=== PATIENT | male | born 1970 | race Two or more races ===

== ENCOUNTER 2018-02-20 11:43 | Emergency (ER) | payer SELFPAY ==
[2018-02-20] MEDS: diphenhydrAMINE HCL 25 MG CAPSULE PO (12:08)
[2018-02-20] MEDS: FAMOTIDINE 20 MG TABLET. PO (12:08)
[2018-02-20] MEDS: predniSONE 20 MG TABLET PO (12:08)
== END 2018-02-20 12:10 | disposition home or self-care (01) ==
LOC: ER 11:43
DX: L23.7 Allergic contact dermatitis due to plants, except food (principal)
CPT/HCPCS: 99284; J7512; Q0163

== ENCOUNTER 2020-05-11 12:42 | Emergency (ER) | payer SELFPAY ==
[~2020-05-11] VITALS: Ht 172.7 cm; Wt 88.0 kg
[~2020-05-11 12:42] MED LIST: DIPH25CA58 PO; FAMO20TA5 PO; PRED-220 PO
[2020-05-11 13:25] VITALS: BP 170/100
--- NOTE | 2020-05-11 13:55 | PHYS DOC ---
Past Medical History Past Medical History: No Pertinent History Past Surgical History: Other Additional Past Surgical Histo: Left eye surgery Smoking Status: Never Smoker Alcohol Use: Occasionally Drug Use: None General Adult EDM: Chief Complaint: SHOULDER INJURY HPI: HPI: Patient is a 50 year old male who presents with a left shoulder injury. Patient was at work today and fell backwards and landed onto his left shoulder. Patient complains of mild at rest but more moderate to severe pain in the left shoulder with range of motion and palpation. Patient denies any radiation of the pain. Patient denies any other injuries. Pain is a throbbing in nature. Review of Systems: Review of Systems: Constitutional: Denies fever or chills. [] Eyes: Denies change in visual acuity. [] HENT: Denies nasal congestion or sore throat. [] Respiratory: Denies cough or shortness of breath. [] Cardiovascular: Denies chest pain or edema. [] GI: Denies abdominal pain, nausea, vomiting, bloody stools or diarrhea. [] : Denies dysuria. [] Musculoskeletal: Complains of left shoulder pain Integument: Denies rash. [] Neurologic: Denies headache, focal weakness or sensory changes. [] Endocrine: Denies polyuria or polydipsia. [] Lymphatic: Denies swollen glands. [] Psychiatric: Denies depression or anxiety. [] Heart Score: Risk Factors: Risk Factors: DM, Current or recent (<one month) smoker, HTN, HLP, family history of CAD, obesity. Risk Scores: Score 0 - 3: 2.5% MACE over next 6 weeks - Discharge Home Score 4 - 6: 20.3% MACE over next 6 weeks - Admit for Clinical Observation Score 7 - 10: 72.7% MACE over next 6 weeks - Early Invasive Strategies Allergies: Allergies: Allergies Coded Allergies Type Severity Reaction Last Updated Verified No Known Drug Allergies 02/20/18 No Physical Exam: PE: Constitutional: Well developed, well nourished, no acute distress, non-toxic appearance. [] HENT: Normocephalic, atraumatic, bilateral external ears normal, no trismus nose normal. [] Eyes: PERRLA, EOMI, conjunctiva normal, no discharge. [] Neck: Normal range of motion, no tenderness, supple, no stridor. [] Cardiovascular:Heart rate regular rhythm, peripheral pulse intact cap refill is brisk Lungs & Thorax: Bilateral breath sounds clear, no respiratory distress Abdomen: Bowel sounds normal, soft, no tenderness, no masses, no pulsatile masses. [] Skin: Warm, dry, no erythema, no rash. [] Back: No tenderness, no CVA tenderness. [] Extremities: Tenderness to the left shoulder and left distal clavicle, no cyanosis, no clubbing, limited range of motion left shoulder, neurovascular intact distally, Neurologic: Alert and oriented X 3, normal motor function, normal sensory function, no focal deficits noted. [] Psychologic: Affect normal, judgement normal, mood normal. [] Current Patient Data: Vital Signs: Vital Signs Date Time Temp Pulse Resp B/P (MAP) Pulse Ox O2 Delivery O2 Flow Rate FiO2 05/11/20 13:25 98.4 88 20 170/100 (123) 97 Room Air 98.4 EKG: EKG: [] Radiology/Procedures: Radiology/Procedures: [][facility] [address] [place], [place] [id number] IMAGING REPORT Signed PATIENT: ADELFO ANDERS ACCOUNT: [id number] : 1970 LOCATION: ER AGE: 50 SEX: M EXAM STATUS: REG ER ORD. PHYSICIAN: MARIMAR BURCH MD REASON: fall PROCEDURE: SHOULDER 2+V LEFT CLAVICLE LEFT, SHOULDER 2+V LEFT History: Fall Comparison: None. Left clavicle: Findings: 2 views left clavicle are submitted. There is comminuted, overriding, displaced fracture of the distal one third shaft of the left clavicle. There is overriding of the fracture fragments, proximal fragment displaced superiorly to the distal fragment by greater than one shaft width. There are some separate adjacent bone fragments along the inferior margin of the distal fragment. Impression: 1. There is displaced, overriding, comminuted left clavicle fracture. Left shoulder: FINDINGS: 3 views left shoulder are submitted. As described for clavicle radiographs, there is overriding displaced left clavicle fracture. No other fracture is identified. Proximal left humerus articulates normally with the glenoid. IMPRESSION: 1.There is again left clavicle fracture, no other acute fracture identified. Electronically signed by: Victoriano Abdi MD (05/11/2020 2:03 PM) [id number] DICTATED and SIGNED BY: VICTORIANO ABDI MD DATE: 05/11/201402 Course & Med Decision Making: Course & Med Decision Making Pertinent Labs and Imaging studies reviewed. (See chart for details) [] 50-year-old male presents with a shoulder injury. Patient has a significantly displaced clavicular fracture. Patient will be placed in a shoulder immobilizer and will need to follow-up with orthopedist. Patient possibly may need surgery. Dragon Disclaimer: Dragon Disclaimer: This electronic medical record was generated, in whole or in part, using a voice recognition dictation system. Departure Departure Impression: Primary Impression: Closed left clavicular fracture Disposition: 01 DC HOME SELF CARE/HOMELESS Condition: STABLE Referrals: NO PCP (PCP) JOHN SAVAGE MD 2-3 DAYS Patient Instructions: Clavicle Fracture, Shoulder Immobilizer Additional Instructions: EMERGENCY DEPARTMENT GENERAL DISCHARGE INSTRUCTIONS THANK YOU for coming to [facility] Emergency Department (ED) today and trusting us with your care. We trust that you had a positive experience in our Emergency Department. If you wish to speak to the department Management you can contact the supervisor delivery department at . YOUR FOLLOW UP INSTRUCTIONS ARE FOLLOWS: Do you have a private doctor? If you do not have a private doctor, please ask for a resource list of physicians or clinics that may be able to assist you with follow up care. The Emergency Physician has interpreted your x-rays. The X-ray specialist will also review them. If there is a change in the findings you will be notified in 48 hours when at all possible. A lab test or lab culture may have been done, your results will be reviewed and you will be notified if you need a change in treatment. ADDITIONAL INSTRUCTIONS AND INFORMATION Your care today has been supervised by a physician who is specially trained in emergency care. Many problems require more than one evaluation for a complete diagnosis and treatment. We recommend that you schedule your follow up appointment as recommended to ensure complete treatment of your illness or injury. If you are unable to obtain follow up care and continue to have a problem, or if your condition worsens we recommend that you return to the ED. We are not able to safely determine your condition over the phone nor are we able to give sound medical advice over the phone. For these safety reasons, if you call for medical advice we will ask you to come to the ED for further evaluation If you have any questions regarding these discharge instructions please call the ED at . SAFETY INFORMATION In the interest of safety, wellness, and injury prevention; we encourage you to wear your seatbelt, if you smoke; quit smoking, and we encourage your family to use protective helmet for bicycling and other sporting events that present an increased risk for head injury. IF YOUR SYMPTOMS WORSEN OR NEW SYMPTOMS DEVELOP, OR YOU HAVE CONCERNS ABOUT YOUR CONDITION; OR IF YOUR CONDITION WORSENS WHILE YOU ARE WAITING FOR YOUR FOLLOW UP APPOINTMENT; EITHER CONTACT YOUR PRIMARY CARE DOCTOR, THE PHYSICIAN WHOSE NAME AND NUMBER YOU WERE GIVEN, OR RETURN TO THE ED IMMEDIATELY. Scripts Oxycodone/Apap 5-325 (PERCOCET 5-325 MG TABLET ) 1 Each Tablet 1-2 EACH PO PRN TID PRN for PAIN, #25 TAB pain Prov: MARIMAR BURCH MD 05/11/20 MARIMAR BURCH MD May 11, 2020 13:55
--- NOTE | 2020-05-11 14:06 | RAD ---
CLAVICLE LEFT, SHOULDER 2+V LEFT History: Fall Comparison: None. Left clavicle: Findings: 2 views left clavicle are submitted. There is comminuted, overriding, displaced fracture of the distal one third shaft of the left clavicle. There is overriding of the fracture fragments, proximal fragment displaced superiorly to the distal fragment by greater than one shaft width. There are some separate adjacent bone fragments along the inferior margin of the distal fragment. Impression: 1. There is displaced, overriding, comminuted left clavicle fracture. Left shoulder: FINDINGS: 3 views left shoulder are submitted. As described for clavicle radiographs, there is overriding displaced left clavicle fracture. No other fracture is identified. Proximal left humerus articulates normally with the glenoid. IMPRESSION: 1.There is again left clavicle fracture, no other acute fracture identified. Electronically signed by: Darrell Jorgensen MD (05/11/2020 2:03 PM) [id number]
[2020-05-11] MEDS ORDERED: OXYC1TAB15 PO (14:43)
== END 2020-05-11 15:03 | disposition home or self-care (01) ==
LOC: ER 12:42
DX: S42.002A Fracture of unspecified part of left clavicle, initial encounter for closed fracture (principal); W18.39XA Other fall on same level, initial encounter; Y93.89 Activity, other specified; Y92.69 Other specified industrial and construction area as the place of occurrence of the external cause; Y99.0 Civilian activity done for income or pay
CPT/HCPCS: 29105; 73000; 73030; 99283; 99284

== ENCOUNTER 2020-05-19 18:33 | Emergency (ER) | payer SELFPAY ==
[~2020-05-19] VITALS: Ht 167.6 cm; Wt 108.2 kg
[~2020-05-19 18:33] MED LIST changes: +OXYC1TAB15 PO
[2020-05-19] MEDS ORDERED: fentaNYL PF VIAL 100 MCG/2 ML VIAL IVP ONE (19:30)
[2020-05-19] MEDS ORDERED: ASPIRIN 325 MG TABLET PO ONE (19:30)
--- NOTE | 2020-05-19 19:36 | PHYS DOC ---
Past Medical History Past Medical History: No Pertinent History Past Surgical History: Other Additional Past Surgical Histo: Left eye surgery Smoking Status: Never Smoker Alcohol Use: Occasionally Drug Use: None General Adult EDM: Chief Complaint: SHOUDLER HPI: HPI: Patient is a 50 year old male who presents with came in on May 11 and was diagnosed with a broken clavicle. He was placed in a shoulder immobilizer. He states that he has not scheduled follow-up care and he has no insurance. He states that tomorrow his boss was going to help him fill out the insurance paperwork so he can get insurance. He states that he has had increased pain and is wanting to know " what I am going to do about fixing the broken part". He has been taking Percocet that he was given before discharge from here. He does have 5 pills left. He states that he has been sleeping in a recliner at home. He states that he has a sharp tingly pain in that left upper shoulder area. He states that he is also feeling short of breath and now having left-sided chest pain that feels like he has been pinched. He states that started today. He states but he still has the constant pain in the shoulder that is always been there. He is rating his pain 9 out of 10. Vital signs are within normal limits. Patient states that the chest pain is worse with sneezing and taking a breath. Review of Systems: Review of Systems: Constitutional: Denies fever or chills. [] Eyes: Denies change in visual acuity. [] HENT: Denies nasal congestion or sore throat. [] Respiratory: Denies cough. + shortness of breath. [] Cardiovascular: + Left chest pain or denies edema. [] GI: Denies abdominal pain, nausea, vomiting, bloody stools or diarrhea. [] : Denies dysuria. [] Musculoskeletal: Denies back pain. + Left shoulder, clavicle joint pain. [] Integument: Denies rash. [] Neurologic: Denies headache, focal weakness or sensory changes. [] Endocrine: Denies polyuria or polydipsia. [] Lymphatic: Denies swollen glands. [] Psychiatric: Denies depression or anxiety. [] Heart Score: HEART Score for Chest Pain: HEART Score for Chest Pain Response (Comments) Value History Slighlty/Non-Suspicious 0 ECG Normal 0 Age >45 - < 65 1 Risk Factors 1 or 2 Risk Factors 1 Troponin < Normal Limit 0 Total 2 Risk Factors: Risk Factors: DM, Current or recent (<one month) smoker, HTN, HLP, family history of CAD, obesity. Risk Scores: Score 0 - 3: 2.5% MACE over next 6 weeks - Discharge Home Score 4 - 6: 20.3% MACE over next 6 weeks - Admit for Clinical Observation Score 7 - 10: 72.7% MACE over next 6 weeks - Early Invasive Strategies Current Medications: Current Medications Medications (Trade) Dose Ordered Sig/Jeff Start Time Stop Time Status Last Admin Dose Admin Aspirin (Kulwant Aspirin) 325 mg 1X ONCE 05/19/20 19:30 05/19/20 19:31 UNV Fentanyl Citrate (Fentanyl 2ml Vial) 50 mcg 1X ONCE 05/19/20 19:30 05/19/20 19:31 UNV Allergies: Allergies: Allergies Coded Allergies Type Severity Reaction Last Updated Verified No Known Drug Allergies 02/20/18 No Physical Exam: PE: Constitutional: Well developed, well nourished, no acute distress, non-toxic appearance. [] HENT: Normocephalic, atraumatic, bilateral external ears normal, oropharynx moist, no oral exudates, nose normal. [] Eyes: PERRLA, EOMI, conjunctiva normal, no discharge. [] Neck: Normal range of motion, no tenderness, supple, no stridor. [] Cardiovascular:Heart rate regular rhythm, no murmur [] Lungs & Thorax: Bilateral upper breath sounds clear lower diminished to auscultation [] Abdomen: Bowel sounds normal, soft, no tenderness, no masses, no pulsatile m asses. [] Skin: Warm, dry, no erythema, no rash. [] Back: No tenderness, no CVA tenderness. [] Extremities: Left clavicle chest tenderness, no cyanosis, no clubbing, limited ROM intact, no edema. [] Neurologic: Alert and oriented X 3, normal motor function, normal sensory function, no focal deficits noted. [] Psychologic: Affect normal, judgement normal, mood normal. [] EKG: EK and read by Dr. Smith sinus rhythm and no STEMI [] Radiology/Procedures: Radiology/Procedures: [] Impression: [facility] [address] [place] [address] IMAGING REPORT Signed PATIENT: ADELFO ANDERS ACCOUNT: [id number] : 1970 LOCATION: ER AGE: 50 SEX: M EXAM STATUS: REG ER ORD. PHYSICIAN: NON,STAFF REASON: SOB PROCEDURE: CHEST AP ONLY INDICATION: Trauma with pain in the chest and shoulder COMPARISON: May 11, 2020 IMPRESSION: Left clavicle: 2 views obtained. Repeat demonstration of a displaced and comminuted fracture of the left clavicle with superior displacement of the proximal fragment by more than one full shaft width again seen. Left shoulder: 3 views obtained. Comminuted left clavicle fracture again seen with displacement. No new fractures identified of the left shoulder. No evidence of dislocation of the humerus. CHEST: Single view of the chest obtained. Displaced left clavicle fracture with comminution is seen on this exam as well. Hypoexpanded examination the lungs with elevation of the left hemidiaphragm. There is some mild hazy opacity at the lung bases which could be seen with mild atelectasis or infiltrate. Cardiac silhouette is mildly enlarged but likely exaggerated by portable technique. Electronically signed by: Ingrid Dai MD (05/19/2020 8:17 PM) [id number] DICTATED and SIGNED BY: INGRID DAI MD DATE: 05/19/202016 [facility] [address] [place] [address] IMAGING REPORT Signed PATIENT: ADELFO ANDERS ACCOUNT: [id number] : 1970 LOCATION: ER AGE: 50 SEX: M EXAM STATUS: REG ER ORD. PHYSICIAN: JAIR DAWSON APRN REASON: soa, pain with breathing PROCEDURE: CT ANGIOGRAPHY CHEST Exam: CT of chest with contrast INDICATION: Short of air, pain with breathing TECHNIQUE: Sequential axial images through the chest obtained following the administration of 100 mL of Omni 350 IV contrast. Sagittal and coronal reformatted images were reconstructed from the axial data and reviewed. 3-D reformatted images were reconstructed from the axial data and reviewed. Comparisons: Chest x-ray same day FINDINGS: The visualized portions of the thyroid are unremarkable. No enlarged mediastinal lymph nodes are identified. Heart size is normal. No pericardial effusion. Thoracic aorta has a normal course and caliber. Pulmonary artery is not enlarged. No pulmonary embolus identified within the main, lobar or segmental pulmonary arteries. Airways are patent. No consolidation or pneumothorax. Strandy opacities at dependent portion of the left lung base likely representing atelectasis. No suspicious lung nodules. No pleural effusion or thickening. Diffuse hepatic steatosis. Moderately comminuted fracture involving the lateral left clavicle. Mildly displaced fracture involving the left lateral fifth and sixth ribs. No suspicious osseous lesions. IMPRESSION: 1. Comminuted fracture involving the left lateral clavicle. 2. Mildly displaced fractures involving the left lateral fifth and sixth ribs. 3. Left basilar atelectasis. 4. No pulmonary embolus identified within the main, lobar or segmental pulmonary arteries. Exposure: One or more of the following in the visualized dose reduction techniques were utilized for this examination: 1. Automated exposure control 2. Adjustment of the MA and/or KV according to patient size 3. Use of iterative of reconstructive technique Electronically signed by: Franca Adkins MD (05/19/2020 8:46 PM) [facility] DICTATED and SIGNED BY: FRANCA ADKINS MD DATE: 05/19/202045 Course & Med Decision Making: Course & Med Decision Making Pertinent Labs and Imaging studies reviewed. (See chart for details) See HPI. Alert and oriented x4. Ambulatory to steady gait. Niuean-speaking head of operation and logistics phone is used. Skin pink warm and dry. Lungs are clear to auscultation upper lobes and diminished in lower lobes. CT Chest shows IMPRESSION: 1. Comminuted fracture involving the left lateral clavicle. 2. Mildly displaced fractures involving the left lateral fifth and sixth ribs. 3. Left basilar atelectasis. 4. No pulmonary embolus identified within the main, lobar or segmental pulmonary arteries. Patient will be placed in a arm sling instead of a shoulder immobilizer. He states once we get the shoulder immobilizer off of him and was no longer wrapped around his rib cage that he could breathe much easier. He is educated that he is going be very sore for a while and because of the broken clavicle and ribs that it well hurts when he takes a deep breath or with movement and this is normal. He states that tomorrow he is filling out paperwork with work for work comp and he will then follow-up with doctors. He states that while he was here he was seen by a orthopedic doctor but they just "looked him over" because he did not have insurance. Patient will be sent home with incentive spirometer. [] Dragon Disclaimer: Dragon Disclaimer: This electronic medical record was generated, in whole or in part, using a voice recognition dictation system. Departure Departure Impression: Primary Impression: Chest pain Qualified Codes: R07.1 - Chest pain on breathing Additional Impressions: Shortness of breath Left rib fracture Qualified Codes: S22.42XA - Multiple fractures of ribs, left side, initial encounter for closed fracture Disposition: 01 DC HOME SELF CARE/HOMELESS Condition: STABLE Referrals: NO PCP (PCP) JOHN SAVAGE MD Patient Instructions: Incentive Spirometer, Rib Fracture Additional Instructions: Follow up with orthopedics as soon as possible. Take pain medication as prescribed. Use incentive spirometer as educated. If you begin to have fever, severe shortness of breath return to ED. Scripts Oxycodone HCl/Acetaminophen (Percocet 5-325 mg Tablet) 1 Each Tablet 1 TAB PO QIDPRN PRN for PAIN MDD 4 Tablet(s), #10 TAB 0 Refills Prov: JAIR DAWSON APRN 05/19/20 JAIR DAWSON APRN May 19, 2020 19:36
[2020-05-19] MEDS ORDERED: methylPREDNISolone SOD SUCC PF 125 MG/2 ML VIAL. IV ONE (19:45)
[2020-05-19] MEDS ORDERED: IPRATRPIUM/ALBUTEROL 0.5/2.5MG 3 ML NEBU. NEB ONE (19:45)
[2020-05-19 19:54] LABS: BASO % 0 % (0-3); EOS # 0.3 x10^3/uL (0.0-0.7); EOS % 4 % (0-3); HEMATOCRIT 41.5 % (39.0-53.0); HEMOGLOBIN 14.3 g/dL (13.0-17.5); LYMPH # 3.2 x10^3/uL (1.0-4.8); LYMPH % 38 % (24-48); MEAN CORPUSCULAR HEMOGLOBIN 33 pg (25-35); MEAN CORPUSCULAR HGB CONC 34 g/dL (31-37); MEAN CORPUSCULAR VOLUME 96 fL (79-100); MONO # 0.6 x10^3/uL (0.0-1.1); MONO % 7 % (0-9); NEUT # 4.3 x10^3/uL (1.8-7.7); NEUT % 51 % (31-73); PLATELET COUNT 273 x10^3/uL (140-400); RED BLOOD COUNT 4.31 x10^6/uL (4.30-5.70); RED CELL DISTRIBUTION WIDTH 12.7 % (11.5-14.5); WHITE BLOOD COUNT 8.5 x10^3/uL (4.0-11.0)
[2020-05-19 20:02] LABS: CALCIUM 9.1 mg/dL (8.5-10.1); CREATININE 0.6 mg/dL (0.7-1.3); GFR 143.2; POTASSIUM 4.3 mmol/L (3.5-5.1)
[2020-05-19 20:03] LABS: PROTHROMBIN TIME PATIENT 12.5 SEC (11.7-14.0)
[2020-05-19 20:06] LABS: D-DIMER 1.71 ug/mlFEU (0.00-0.50)
[2020-05-19 20:07] LABS: ALBUMIN 3.8 g/dL (3.4-5.0); ALBUMIN/GLOBULIN RATIO 0.8 (1.0-1.7); TOTAL BILIRUBIN 0.2 mg/dL (0.2-1.0); TOTAL PROTEIN 8.4 g/dL (6.4-8.2)
[2020-05-19] MEDS ORDERED: IV NORMAL SALINE 1000ML BAG 1,000 ML IV ONE (20:15)
--- NOTE | 2020-05-19 20:20 | RAD ---
INDICATION: Trauma with pain in the chest and shoulder COMPARISON: May 11, 2020 IMPRESSION: Left clavicle: 2 views obtained. Repeat demonstration of a displaced and comminuted fracture of the left clavicle with superior displacement of the proximal fragment by more than one full shaft width again seen. Left shoulder: 3 views obtained. Comminuted left clavicle fracture again seen with displacement. No new fractures identified of the left shoulder. No evidence of dislocation of the humerus. CHEST: Single view of the chest obtained. Displaced left clavicle fracture with comminution is seen on this exam as well. Hypoexpanded examination the lungs with elevation of the left hemidiaphragm. There is some mild hazy opacity at the lung bases which could be seen with mild atelectasis or infiltrate. Cardiac silhouette is mildly enlarged but likely exaggerated by portable technique. Electronically signed by: Luiz Bogsg MD (05/19/2020 8:17 PM) [id number]
[2020-05-19] MEDS ORDERED: IOHEXOL 350 MG/ML 100 ML VIAL. IV ONE (20:30)
[2020-05-19] MEDS ORDERED: CONTRAST GIVEN. MC PRN (20:30)
--- NOTE | 2020-05-19 20:49 | RAD ---
Exam: CT of chest with contrast INDICATION: Short of air, pain with breathing TECHNIQUE: Sequential axial images through the chest obtained following the administration of 100 mL of Omni 350 IV contrast. Sagittal and coronal reformatted images were reconstructed from the axial data and reviewed. 3-D reformatted images were reconstructed from the axial data and reviewed. Comparisons: Chest x-ray same day FINDINGS: The visualized portions of the thyroid are unremarkable. No enlarged mediastinal lymph nodes are identified. Heart size is normal. No pericardial effusion. Thoracic aorta has a normal course and caliber. Pulmonary artery is not enlarged. No pulmonary embolus identified within the main, lobar or segmental pulmonary arteries. Airways are patent. No consolidation or pneumothorax. Strandy opacities at dependent portion of the left lung base likely representing atelectasis. No suspicious lung nodules. No pleural effusion or thickening. Diffuse hepatic steatosis. Moderately comminuted fracture involving the lateral left clavicle. Mildly displaced fracture involving the left lateral fifth and sixth ribs. No suspicious osseous lesions. IMPRESSION: 1. Comminuted fracture involving the left lateral clavicle. 2. Mildly displaced fractures involving the left lateral fifth and sixth ribs. 3. Left basilar atelectasis. 4. No pulmonary embolus identified within the main, lobar or segmental pulmonary arteries. Exposure: One or more of the following in the visualized dose reduction techniques were utilized for this examination: 1. Automated exposure control 2. Adjustment of the MA and/or KV according to patient size 3. Use of iterative of reconstructive technique Electronically signed by: Franca Foster MD (05/19/2020 8:46 PM) [facility]
[2020-05-19] MEDS ORDERED: OXYC-325 PO (21:20)
[2020-05-19 21:43] VITALS: BP 138/61
== END 2020-05-19 21:50 | disposition home or self-care (01) ==
LOC: ER 18:33
DX: S22.42XA Multiple fractures of ribs, left side, initial encounter for closed fracture (principal); S42.002A Fracture of unspecified part of left clavicle, initial encounter for closed fracture; R07.1 Chest pain on breathing; R06.02 Shortness of breath; M25.512 Pain in left shoulder; M54.2 Cervicalgia; X58.XXXA Exposure to other specified factors, initial encounter; Y93.89 Activity, other specified; Y92.89 Other specified places as the place of occurrence of the external cause; Y99.8 Other external cause status
CPT/HCPCS: 36415; 71045; 71275; 73000; 73030; 80053; 83690; 83880; 84484; 85025; 85379; 85610; 93005; 96361; 96374; 99285; A4565; J3010; J7030; Q9967